=== PATIENT | male | born 1950 | race Caucasian/White ===

== ENCOUNTER 2020-11-04 17:07 | Inpatient (IN) | payer MEDICARE, MEDICAID ==
[~2020-11-04] VITALS: Ht 160 cm; Wt 69.9 kg
[2020-11-04] MEDS ORDERED: PIPERACILLIN/TAZ 3.375G PREMIX 50 ML IV ONE (22:45)
[2020-11-04 23:58] LABS: CHLORIDE 101 mEq/L (98-107)
[2020-11-05] VITALS (22 sets, daily range): BP systolic 124–163; BP diastolic 53–105
[2020-11-05 00:14] LABS: CLARITY URINE CLOUDY (CLEAR); COLOR URINE YELLOW (YELLOW); KETONES URINE NEGATIVE (NEGATIVE); LEUKOCYTE ESTERASE URINE 2+ (NEGATIVE); NITRITE URINE NEGATIVE (NEGATIVE); OCCULT BLOOD URINE TRACE (NEGATIVE); PROTEIN URINE 3+ (NEGATIVE); SPECIFIC GRAVITY URINE 1.015 (1.005-1.030); UROBILINOGEN URINE 0.2 E.U./dL (0.2-1.0)
[2020-11-05 00:15] LABS: BASOPHILS % 0.3 % (0.0-2.0); EOSINOPHILS % 0.9 % (0.0-5.0); HEMATOCRIT. 23.1 % (42.0-52.0); HEMOGLOBIN. 7.3 g/dL (14.0-18.0); LYMPHOCYTES % 7.9 % (20.0-50.0); MEAN CORPUSCULAR HEMOGLOBIN 25.6 pg (28.0-32.0); MEAN CORPUSCULAR VOLUME 81.4 fL (80.0-94.0); MEAN PLATELET VOLUME 7.2 fl (7.4-10.4); MONOCYTES % 8.1 % (2.0-8.0); NEUTROPHILS % 82.8 % (40.0-76.0); PLATELET 435 x1000/uL (130-400); RED BLOOD CELL COUNT 2.84 mill/uL (4.7-6.1); RED CELL DISTRIBUTION WIDTH 18.6 % (11.6-14.6)
[2020-11-05 05:37] LABS: BASOPHILS % 0.3 % (0.0-2.0); EOSINOPHILS % 1.2 % (0.0-5.0); HEMATOCRIT. 21.8 % (42.0-52.0); MEAN CORPUSCULAR HEMOGLOBIN 25.1 pg (28.0-32.0); MEAN CORPUSCULAR VOLUME 81.6 fL (80.0-94.0); MEAN PLATELET VOLUME 7.1 fl (7.4-10.4); MONOCYTES % 9.1 % (2.0-8.0); NEUTROPHILS % 80.4 % (40.0-76.0); PLATELET 354 x1000/uL (130-400); RED BLOOD CELL COUNT 2.67 mill/uL (4.7-6.1); RED CELL DISTRIBUTION WIDTH 18.6 % (11.6-14.6)
[2020-11-05 05:40] LABS: HEMOGLOBIN. 6.7 g/dL (14.0-18.0)
[2020-11-05] MEDS ORDERED: ACETAMINOPHEN 325MG TABLET PO PRN (08:30)
[2020-11-05] MEDS ORDERED: PIPERACILLIN/TAZOBACTAM 3.375 G in DEXT 5% WATER 100 ML IV SCH (08:30)
[2020-11-05] MEDS ORDERED: ONDANSETRON HCL 4MG/2ML INJ IV PRN (08:30)
[2020-11-05 08:45] LABS: INR 1.2; PARTIAL THROMBOPLASTIN TIME 32.1 sec (23.4-31.0); PROTHROMBIN TIME 12.9 sec (9.6-11.0)
[2020-11-05] MEDS ORDERED: PIPERACILLIN/TAZOBACTAM 2.25 G in DEXTROSE 5% WATER 50 ML IV SCH (09:00)
[2020-11-05] MEDS: METOPROLOL TARTRATE 50MG TABLET PO SCH ×2 (11:18→21:03)
[2020-11-05] MEDS: MORPHINE SULFATE 2 MG/ML CPJ (NOT FOR IM USE) IV PRN ×2 (11:18→23:20)
[2020-11-05] MEDS ORDERED: FENTANYL CITRATE/PF 50MCG/ML 2ML VIAL ONE (12:44)
[2020-11-05] MEDS ORDERED: LIDOCAINE HCL 1% 20ML VIAL (Pyxis) INJ ONE (12:44)
[2020-11-05] MEDS ORDERED: SODIUM BICARBONATE 4% (2.4MEQ) 5ML VIAL IV ONE (12:44)
[2020-11-05] MEDS ORDERED: CLONIDINE 0.1MG TABLET PO PRN (12:45)
[2020-11-05] MEDS ORDERED: FENTANYL CITRATE/PF 50MCG/ML 2ML VIAL IV SCH (14:00)
[2020-11-05 15:37] LABS: HEMATOCRIT 25.9 % (42.0-52.0); HEMOGLOBIN 8.4 g/dL (14.0-18.0)
[2020-11-05] MEDS: PIPERACILLIN/TAZOBACTAM 2.25 G in DEXTROSE 5% WATER 50 ML IV SCH (20:34)
[2020-11-05] MEDS ORDERED: ALPRAZOLAM 0.5 MG TABLET PO PRN (22:45)
[2020-11-05] MEDS ORDERED: ATOR-2 PO (22:53)
[2020-11-05] MEDS ORDERED: AMLO10TA80 PO (22:53)
[2020-11-05] MEDS ORDERED: FOLI-43 PO (22:53)
[2020-11-05] MEDS ORDERED: FERR325T6 PO (22:53)
[2020-11-05] MEDS ORDERED: CLON0.1T PO (22:53)
[2020-11-05] MEDS ORDERED: ALPR-340 PO (22:53)
[2020-11-05] MEDS ORDERED: MIRT15TA6 PO (22:53)
[2020-11-05] MEDS ORDERED: FURO40TA5 PO (22:53)
[2020-11-05] MEDS ORDERED: GLIP5TAB12 PO (22:53)
[2020-11-05] MEDS ORDERED: BENA20TA10 PO (22:53)
[2020-11-05] MEDS ORDERED: FLUO20CA39 PO (22:53)
[2020-11-05] MEDS ORDERED: METO-396 PO (22:54)
[2020-11-05] MEDS ORDERED: DEXTROSE 50% WATER 50ML SYRINGE IV PRN (23:00)
[2020-11-06] VITALS: BP 146/66
[2020-11-06 04:00] VITALS: BP 145/64
[2020-11-06] MEDS: PIPERACILLIN/TAZOBACTAM 2.25 G in DEXTROSE 5% WATER 50 ML IV SCH ×3 (04:24→20:42)
[2020-11-06] MEDS: BLOOD SUGAR DIAGNOSTIC STRIP TEST SCH ×4 (06:10→20:42)
[2020-11-06 06:21] LABS: HEMATOCRIT. 25.5 % (42.0-52.0); HEMOGLOBIN. 8.1 g/dL (14.0-18.0); MEAN CORPUSCULAR HEMOGLOBIN 25.7 pg (28.0-32.0); MEAN PLATELET VOLUME 7.1 fl (7.4-10.4); PLATELET 325 x1000/uL (130-400); RED BLOOD CELL COUNT 3.15 mill/uL (4.7-6.1); RED CELL DISTRIBUTION WIDTH 18.5 % (11.6-14.6)
[2020-11-06] MEDS: INSULIN LISPRO 100 UNITS/ML SUBCUT SCH ×4 (07:33→20:48)
[2020-11-06 07:51] VITALS: BP 147/65
[2020-11-06] MEDS: METOPROLOL TARTRATE 50MG TABLET PO SCH ×2 (08:33→20:42)
[2020-11-06] MEDS: AMLODIPINE 10MG TABLET PO SCH (08:33)
[2020-11-06] MEDS: FLUOXETINE HCL 20MG CAPSULE PO SCH (08:33)
[2020-11-06] MEDS: FUROSEMIDE 40MG TABLET PO SCH (08:33)
[2020-11-06] MEDS: FOLIC ACID/VITAMIN B COMP W-C TABLET PO SCH (08:33)
[2020-11-06 11:52] VITALS: BP 133/62
[2020-11-06 12:56] LABS: PLATELET ESTIMATE NORMAL
[2020-11-06 16:28] VITALS: BP 129/63
[2020-11-06 20:00] VITALS: BP 138/68
[2020-11-06] MEDS ORDERED: ATORVASTATIN CALCIUM 40MG TABLET PO SCH (21:00)
[2020-11-06] MEDS ORDERED: MIRTAZAPINE 15MG TABLET PO SCH (21:00)
[2020-11-06] MEDS: MORPHINE SULFATE 2 MG/ML CPJ (NOT FOR IM USE) IV PRN (21:45)
[2020-11-07] VITALS: BP 125/59
[2020-11-07 04:00] VITALS: BP 128/56
[2020-11-07] MEDS: PIPERACILLIN/TAZOBACTAM 2.25 G in DEXTROSE 5% WATER 50 ML IV SCH ×2 (04:22→12:57)
[2020-11-07] MEDS: BLOOD SUGAR DIAGNOSTIC STRIP TEST SCH ×2 (06:21→12:57)
[2020-11-07] MEDS: INSULIN LISPRO 100 UNITS/ML SUBCUT SCH ×2 (07:50→12:50)
[2020-11-07 08:00] VITALS: BP 129/63
[2020-11-07] MEDS: METOPROLOL TARTRATE 50MG TABLET PO SCH (09:00)
[2020-11-07] MEDS: AMLODIPINE 10MG TABLET PO SCH (09:00)
[2020-11-07] MEDS: FLUOXETINE HCL 20MG CAPSULE PO SCH (09:07)
[2020-11-07] MEDS: FUROSEMIDE 40MG TABLET PO SCH (09:07)
[2020-11-07] MEDS: FOLIC ACID/VITAMIN B COMP W-C TABLET PO SCH (09:08)
[2020-11-07 10:12] VITALS: BP 129/53
[2020-11-07 12:00] VITALS: BP 140/68
[2020-11-07] MEDS ORDERED: LEVO250T58 MT (12:34)
[2020-11-07 12:41] LABS: BASOPHILS % 0.5 % (0.0-2.0); EOSINOPHILS % 1.1 % (0.0-5.0); HEMATOCRIT. 25.3 % (42.0-52.0); HEMOGLOBIN. 8.1 g/dL (14.0-18.0); LYMPHOCYTES % 8.1 % (20.0-50.0); MEAN CORPUSCULAR HEMOGLOBIN 25.7 pg (28.0-32.0); MEAN CORPUSCULAR VOLUME 80.2 fL (80.0-94.0); MEAN PLATELET VOLUME 6.7 fl (7.4-10.4); MONOCYTES % 7.6 % (2.0-8.0); NEUTROPHILS % 82.7 % (40.0-76.0); PLATELET 289 x1000/uL (130-400); RED BLOOD CELL COUNT 3.15 mill/uL (4.7-6.1); RED CELL DISTRIBUTION WIDTH 18.1 % (11.6-14.6)
[2020-11-07 14:04] VITALS: BP 140/68
== END 2020-11-07 16:36 | disposition home or self-care (01) | DRG 856 ==
LOC: ER 17:07 → 6WST 11-05 00:42 → ENRESERV 11-05 15:36
PROVIDERS: ADMIT Internal Medicine; ATTEND Internal Medicine
PROC: 30233N1 Transfusion of Nonautologous Red Blood Cells into Peripheral Vein, Percutaneous Approach (ICD-10-PCS; principal; 2020-11-05)
PROC: 0W9F3ZX Drainage of Abdominal Wall, Percutaneous Approach, Diagnostic (ICD-10-PCS; 2020-11-05)
DX: T81.43XA Infection following a procedure, organ and space surgical site, initial encounter (principal); A41.9 Sepsis, unspecified organism; N18.6 End stage renal disease; L02.818 Cutaneous abscess of other sites; E44.0 Moderate protein-calorie malnutrition; E87.1 Hypo-osmolality and hyponatremia; I13.2 Hypertensive heart and chronic kidney disease with heart failure and with stage 5 chronic kidney disease, or end stage renal disease; J98.11 Atelectasis; N39.0 Urinary tract infection, site not specified; Z20.822 Contact with and (suspected) exposure to COVID-19; Y83.8 Other surgical procedures as the cause of abnormal reaction of the patient, or of later complication, without mention of misadventure at the time of the procedure; F41.9 Anxiety disorder, unspecified; E11.22 Type 2 diabetes mellitus with diabetic chronic kidney disease; E11.649 Type 2 diabetes mellitus with hypoglycemia without coma; D63.8 Anemia in other chronic diseases classified elsewhere; E78.5 Hyperlipidemia, unspecified; I25.10 Atherosclerotic heart disease of native coronary artery without angina pectoris; I50.9 Heart failure, unspecified; K80.20 Calculus of gallbladder without cholecystitis without obstruction; Z87.442 Personal history of urinary calculi; Z90.49 Acquired absence of other specified parts of digestive tract; Z99.2 Dependence on renal dialysis; Y92.89 Other specified places as the place of occurrence of the external cause; Z68.27 Body mass index [BMI] 27.0-27.9, adult
CPT/HCPCS: 36415; 49180; 71045; 74176; 77012; 80048; 80076; 81003; 82270; 82962; 83036; 83605; 84145; 84484; 85014; 85018; 85025; 86850; 86900; 86920; 87070; 87075; 87077; 87186; 87426; 93005; 99152; 99153; 99285; C1729; C1769; J2270; J2405; J2543; J3010; J3490; J7040; J7060; L8514; P9016; G0500

== ENCOUNTER 2021-02-11 07:00 | Inpatient (IN) | payer MEDICARE, MEDICAID ==
[~2021-02-11] VITALS: Ht 167.6 cm; Wt 75.3 kg
[2021-02-11] VITALS (31 sets, daily range): BP systolic 131–158; BP diastolic 56–85
[~2021-02-11 07:00] MED LIST: ALPR-340 PO; AMLO10TA80 PO; ATOR-2 PO; BENA20TA10 PO; CLON0.1T PO; FERR325T6 PO; FLUO20CA39 PO; FOLI-43 PO; FURO40TA5 PO; GLIP5TAB12 PO; LEVO250T58 MT; METO-396 PO; MIRT15TA6 PO
[2021-02-11 08:33] LABS: BASOPHILS % 0.5 % (0.0-2.0); EOSINOPHILS % 1.8 % (0.0-5.0); HEMATOCRIT. 38.7 % (42.0-52.0); HEMOGLOBIN. 12.3 g/dL (14.0-18.0); LYMPHOCYTES % 14.8 % (20.0-50.0); MEAN CORPUSCULAR HEMOGLOBIN 26.9 pg (28.0-32.0); MEAN CORPUSCULAR VOLUME 84.2 fL (80.0-94.0); MEAN PLATELET VOLUME 9.7 fl (7.4-10.4); MONOCYTES % 7.2 % (2.0-8.0); NEUTROPHILS % 75.7 % (40.0-76.0); PLATELET 129 x1000/uL (130-400); RED BLOOD CELL COUNT 4.59 mill/uL (4.7-6.1); RED CELL DISTRIBUTION WIDTH 16.6 % (11.6-14.6)
[2021-02-11 08:36] LABS: CHLORIDE 103 mEq/L (98-107)
[2021-02-11 08:59] LABS: PROTHROMBIN TIME 10.3 sec (9.6-11.0)
[2021-02-11] MEDS ORDERED: CEFAZOLIN 1000MG PREMIX 50 ML IV NR (09:45)
[2021-02-11] MEDS ORDERED: LIDOCAINE HCL 1% 20ML VIAL (Pyxis) INJ ONE (10:15)
[2021-02-11] MEDS ORDERED: IOHEXOL-300 100 ML BOTTLE ONE (10:15)
[2021-02-11] MEDS ORDERED: HEPARIN 1000 UNITS/ML 10ML ONE (10:16)
[2021-02-11] MEDS ORDERED: FENTANYL CITRATE/PF 50MCG/ML 2ML VIAL ONE ×2 (10:19→11:52)
[2021-02-11] MEDS ORDERED: CEFAZOLIN 1000MG PREMIX 50 ML IV ONE (10:19)
[2021-02-11] MEDS ORDERED: FENTANYL CITRATE/PF 50MCG/ML 2ML VIAL IV ONE ×2 (11:45→12:00)
[2021-02-11] MEDS: ACETAMINOPHEN 325MG TABLET PO PRN (19:24)
[2021-02-11] MEDS ORDERED: HYDR100T26 MT (22:05)
[2021-02-11] MEDS ORDERED: ASPI-1497 MT (22:05)
[2021-02-11] MEDS: ONDANSETRON HCL 4MG/2ML INJ IV PRN (22:51)
[2021-02-12] VITALS (29 sets, daily range): BP systolic 132–160; BP diastolic 62–84
[2021-02-12 10:07] LABS: HEMATOCRIT 39.7 % (42.0-52.0); HEMOGLOBIN 12.6 g/dL (14.0-18.0); MEAN CORPUSCULAR HEMOGLOBIN 26.9 pg (28.0-32.0); MEAN CORPUSCULAR VOLUME 84.7 fL (80.0-94.0); PLATELET 123 x1000/uL (130-400); RED BLOOD CELL COUNT 4.69 mill/uL (4.7-6.1); RED CELL DISTRIBUTION WIDTH 16.5 % (11.6-14.6)
[2021-02-12 10:23] LABS: PARTIAL THROMBOPLASTIN TIME 28.3 sec (23.4-31.0); PROTHROMBIN TIME 10.7 sec (9.6-11.0)
[2021-02-12] MEDS ORDERED: LIDOCAINE HCL 1% 20ML VIAL (Pyxis) INJ ONE (12:59)
[2021-02-12] MEDS ORDERED: CEFAZOLIN 1000MG PREMIX 50 ML IV ONE ×2 (13:13→13:15)
[2021-02-12] MEDS ORDERED: FENTANYL CITRATE/PF 50MCG/ML 2ML VIAL ONE (13:14)
[2021-02-12] MEDS ORDERED: FENTANYL CITRATE/PF 50MCG/ML 2ML VIAL IV ONE (13:45)
[2021-02-12] MEDS ORDERED: HEPARIN 100 UNITS/1 ML VIAL IVF PRN (13:45)
[2021-02-12] MEDS: ACETAMINOPHEN 325MG TABLET PO PRN (16:25)
[2021-02-12 17:26] LABS: HEPATITIS B SURFACE ANTIGEN NEGATIVE
[2021-02-12 17:53] LABS: HEPATITIS A AB IGM NEGATIVE (NEGATIVE)
[2021-02-12] MEDS ORDERED: NALOXONE HCL 0.4MG/ML VIAL IV PRN (19:00)
[2021-02-12] MEDS ORDERED: HYDROCODONE/ACETAMINOPHEN 5/325MG TABLET PO PRN (19:00)
[2021-02-12] MEDS: MORPHINE SULFATE 2 MG/ML CPJ (NOT FOR IM USE) IV PRN (19:34)
[2021-02-13] VITALS (12 sets, daily range): BP systolic 99–146; BP diastolic 52–93
[2021-02-13] MEDS: MORPHINE SULFATE 2 MG/ML CPJ (NOT FOR IM USE) IV PRN (01:49)
[2021-02-13] MEDS ORDERED: LORAZEPAM 2MG/ML CPJ IM PRN (03:45)
[2021-02-13] MEDS ORDERED: SORBITOL 70% SOLN 30ML PO SCH (11:00)
[2021-02-13] MEDS ORDERED: BISACODYL 10MG SUPP PR SCH (11:00)
[2021-02-13 12:38] LABS: BASOPHILS % 0.5 % (0.0-2.0); EOSINOPHILS % 0.7 % (0.0-5.0); HEMATOCRIT. 39.7 % (42.0-52.0); LYMPHOCYTES % 8.8 % (20.0-50.0); MEAN CORPUSCULAR HEMOGLOBIN 26.7 pg (28.0-32.0); MEAN CORPUSCULAR VOLUME 81.9 fL (80.0-94.0); MEAN PLATELET VOLUME 8.9 fl (7.4-10.4); MONOCYTES % 8.1 % (2.0-8.0); NEUTROPHILS % 81.9 % (40.0-76.0); PLATELET 133 x1000/uL (130-400); RED BLOOD CELL COUNT 4.84 mill/uL (4.7-6.1); RED CELL DISTRIBUTION WIDTH 16.2 % (11.6-14.6)
[2021-02-13] MEDS: ONDANSETRON HCL 4MG/2ML INJ IV PRN (23:10)
[2021-02-14] VITALS: BP 119/73
[2021-02-14 02:00] VITALS: BP 113/73
[2021-02-14 04:00] VITALS: BP 118/69
[2021-02-14 06:00] VITALS: BP 122/70
[2021-02-14] MEDS: ONDANSETRON HCL 4MG/2ML INJ IV PRN (06:23)
[2021-02-14] MEDS ORDERED: DIATR MEGLU/DIATRIZOATE SOLN 30ML PO SCH (08:15)
[2021-02-14 08:20] VITALS: BP 152/95
[2021-02-14] MEDS ORDERED: IOHEXOL-300 100 ML BOTTLE ONE (09:20)
[2021-02-14 10:22] VITALS: BP 112/64
== END 2021-02-14 11:50 | disposition home or self-care (01) | DRG 252 ==
LOC: ER 07:00 → MICUSO 11:04 → 3WST 19:22
PROVIDERS: ADMIT Internal Medicine Nephrology; ATTEND Internal Medicine Nephrology
PROC: 05CF3ZZ Extirpation of Matter from Left Cephalic Vein, Percutaneous Approach (ICD-10-PCS; 2021-02-11)
PROC: 037Y3ZZ Dilation of Upper Artery, Percutaneous Approach (ICD-10-PCS; 2021-02-11)
PROC: 057Y3ZZ Dilation of Upper Vein, Percutaneous Approach (ICD-10-PCS; 2021-02-11)
PROC: B31J1ZZ Fluoroscopy of Left Upper Extremity Arteries using Low Osmolar Contrast (ICD-10-PCS; 2021-02-11)
PROC: B51N1ZZ Fluoroscopy of Left Upper Extremity Veins using Low Osmolar Contrast (ICD-10-PCS; 2021-02-11)
PROC: B31N1ZZ Fluoroscopy of Other Upper Arteries using Low Osmolar Contrast (ICD-10-PCS; 2021-02-11)
PROC: B51V1ZZ Fluoroscopy of Other Veins using Low Osmolar Contrast (ICD-10-PCS; 2021-02-11)
PROC: B5181ZZ Fluoroscopy of Superior Vena Cava using Low Osmolar Contrast (ICD-10-PCS; 2021-02-11)
PROC: 0JH63XZ Insertion of Tunneled Vascular Access Device into Chest Subcutaneous Tissue and Fascia, Percutaneous Approach (ICD-10-PCS; principal; 2021-02-12)
PROC: 02HV33Z Insertion of Infusion Device into Superior Vena Cava, Percutaneous Approach (ICD-10-PCS; 2021-02-12)
PROC: B5181ZA Fluoroscopy of Superior Vena Cava using Low Osmolar Contrast, Guidance (ICD-10-PCS; 2021-02-12)
PROC: B548ZZA Ultrasonography of Superior Vena Cava, Guidance (ICD-10-PCS; 2021-02-12)
DX: T82.510A Breakdown (mechanical) of surgically created arteriovenous fistula, initial encounter (principal); N18.6 End stage renal disease; I13.2 Hypertensive heart and chronic kidney disease with heart failure and with stage 5 chronic kidney disease, or end stage renal disease; F41.9 Anxiety disorder, unspecified; Y84.1 Kidney dialysis as the cause of abnormal reaction of the patient, or of later complication, without mention of misadventure at the time of the procedure; Y71.2 Prosthetic and other implants, materials and accessory cardiovascular devices associated with adverse incidents; Z20.822 Contact with and (suspected) exposure to COVID-19; E87.5 Hyperkalemia; I50.9 Heart failure, unspecified; D64.9 Anemia, unspecified; E11.22 Type 2 diabetes mellitus with diabetic chronic kidney disease; Z99.2 Dependence on renal dialysis; Z87.442 Personal history of urinary calculi; Y92.89 Other specified places as the place of occurrence of the external cause; Z91.15 Patient's noncompliance with renal dialysis
CPT/HCPCS: 36415; 36558; 36905; 71045; 74177; 76937; 77001; 80048; 80053; 82962; 85025; 85027; 86705; 86709; 86803; 87340; 87426; 99152; 99153; 99285; C1725; C1750; C1757; C1766; C1769; C1887; J0690; J1642; J1644; J2060; J2270; J2405; J3010; J3490; Q9967; G0500

== ENCOUNTER 2022-11-12 07:15 | Emergency (ER) | payer MEDICARE, MEDICAID ==
[~2022-11-12] VITALS: Ht 170.2 cm; Wt 77.2 kg
[~2022-11-12 07:15] MED LIST changes: +ASPI-1497 MT; +BENA-8 PO; -BENA20TA10 PO; +HYDR100T26 MT; -LEVO250T58 MT; +LEVO250T74 MT; +MIRT-89 PO; -MIRT15TA6 PO
[2022-11-12] MEDS ORDERED: ONDANSETRON HCL 4MG TABLET PO ONE (09:00)
[2022-11-12] MEDS ORDERED: KETOROLAC 60MG/2ML VIAL IM ONE (09:00)
[2022-11-12] MEDS ORDERED: TOPUD PO (09:47)
[2022-11-12 10:04] VITALS: BP 131/54
== END 2022-11-12 10:05 | disposition home or self-care (01) ==
LOC: ER 07:15
DX: R51.9 Headache, unspecified (principal); E11.9 Type 2 diabetes mellitus without complications; I11.0 Hypertensive heart disease with heart failure; I50.9 Heart failure, unspecified; Z79.899 Other long term (current) drug therapy
CPT/HCPCS: 96372; 99283; J1885; Q0162

== ENCOUNTER 2023-01-13 20:55 | Inpatient (IN) | payer MEDICARE, MEDICAID ==
[~2023-01-13] VITALS: Ht 170.2 cm; Wt 86.3 kg
[~2023-01-13 20:55] MED LIST changes: +TOPUD PO
[2023-01-13 21:30] VITALS: PULSE 51; RESP 17
[2023-01-13] MEDS ORDERED: SODIUM BICARBONATE 150 MEQ in DEXTROSE 5% WATER 1,000 ML IV STA (21:49)
[2023-01-13] MEDS ORDERED: VECURONIUM BROMIDE 10 MG/VIAL IV ONE (22:00)
[2023-01-13] MEDS ORDERED: DEXTROSE 50% WATER 50ML SYRINGE IV ONE (22:00)
[2023-01-13] MEDS ORDERED: CALCIUM CHLORIDE 1GM/10ML SYR IV ONE (22:00)
[2023-01-13] MEDS ORDERED: SODIUM BICARBONATE 8.4% 1 MEQ/ML 50ML SYR IV ONE ×2 (22:00)
[2023-01-13] MEDS ORDERED: ALBUTEROL (0.083%) 2.5MG/3ML NEB HHN ONE (22:00)
[2023-01-13] MEDS ORDERED: INSULIN REGULAR (HUMULIN R) 300UNITS/3ML VIAL IV ONE (22:00)
[2023-01-13] MEDS ORDERED: DOPAMINE 400MG/250ML PREMIX 250 ML IV STA (22:38)
[2023-01-13 22:51] LABS: BG BASE EXCESS -3.9 mmol/L (-2.0-2.0); BG DEOXYHEMOGLOBIN 1.4 % (0.0-5.0); BG FRACTION INSPIRED OXYGEN 1000; BG HCO3 ACT 21.7 mmol/L (22.0-26.0); BG METHEMOGLOBIN 0.2 % (0.0-1.5); BG OXYGEN SATURATION 98.6 % (92.0-98.5); BG OXYHEMOGLOBIN 97.4 % (94.0-97.0); BG PCO2 41.9 mmHg (35.0-45.0); BG PH 7.332 (7.350-7.450); BG PO2 338.5 mmHg (75.0-100.0); BG SAMPLE SITE RIGHT RADIAL; BG VENT MODE VENT - AC
[2023-01-13] MEDS ORDERED: IPRATROPIUM/ALBUTEROL 0.5-3(2.5)MG/3ML NEB HHN PRN (23:00)
[2023-01-13] MEDS ORDERED: MIDAZOLAM HCL 100 MG in SODIUM CHLORIDE 0.9% 80 ML IV PRN ×2 (23:00→23:15)
[2023-01-13] MEDS ORDERED: FENTANYL CITRATE/PF 2,500 MCG in SODIUM CHLORIDE 0.9% 200 ML IV PRN ×2 (23:00→23:15)
[2023-01-13 23:16] LABS: MEAN CORPUSCULAR HEMOGLOBIN 26.4 pg (28.0-32.0); MEAN CORPUSCULAR VOLUME 85.8 fL (80.0-94.0); MEAN PLATELET VOLUME 8.5 fl (7.4-10.4); PLATELET 283 x1000/uL (130-400); RED BLOOD CELL COUNT 2.44 mill/uL (4.7-6.1); RED CELL DISTRIBUTION WIDTH 19.9 % (11.6-14.6)
[2023-01-13 23:18] LABS: CHLORIDE 99 mEq/L (98-107)
[2023-01-13 23:24] LABS: HEMOGLOBIN. 6.5 g/dL (14.0-18.0)
[2023-01-13 23:32] LABS: INR 1.1; PROTHROMBIN TIME 12.1 sec (9.6-11.0)
[2023-01-13 23:33] VITALS: O2SAT 97
[2023-01-13 23:55] VITALS: PULSE 73; RESP 15
[2023-01-14] VITALS (42 sets, daily range): BP systolic 84–104; BP diastolic 38–92; PULSE 69–89; RESP 12–28; TEMP 94.8–99
[2023-01-14] MEDS: IPRATROPIUM/ALBUTEROL 0.5-3(2.5)MG/3ML NEB HHN SCH ×5 (00:16→20:15)
[2023-01-14] MEDS ORDERED: SODIUM BICARBONATE 8.4% 1 MEQ/ML 50ML SYR IV NR ×2 (00:30)
[2023-01-14] MEDS ORDERED: CALCIUM CHLORIDE 1GM/10ML SYR IV NR (00:30)
[2023-01-14 00:34] LABS: PLATELET ESTIMATE NORMAL
[2023-01-14] MEDS: ALBUTEROL (0.083%) 2.5MG/3ML NEB HHN SCH ×2 (00:50→02:01)
[2023-01-14 06:54] LABS: CLARITY URINE CLOUDY (CLEAR); COLOR URINE YELLOW (YELLOW); KETONES URINE NEGATIVE (NEGATIVE); LEUKOCYTE ESTERASE URINE 3+ (NEGATIVE); NITRITE URINE NEGATIVE (NEGATIVE); OCCULT BLOOD URINE 3+ (NEGATIVE); PH URINE 6.5 (4.5-8.0); PROTEIN URINE 3+ (NEGATIVE); SPECIFIC GRAVITY URINE 1.016 (1.005-1.030); UROBILINOGEN URINE 0.2 E.U./dL (0.2-1.0)
[2023-01-14] MEDS ORDERED: PIPERACILLIN/TAZ 3.375G PREMIX 50 ML IV NR (08:30)
[2023-01-14 08:38] LABS: BG CARBOXYHEMOGLOBIN 1.2 % (0.5-1.5); BG DEOXYHEMOGLOBIN 4.4 % (0.0-5.0); BG FRACTION INSPIRED OXYGEN 40; BG HCO3 ACT 29.7 mmol/L (22.0-26.0); BG METHEMOGLOBIN 0.3 % (0.0-1.5); BG OXYGEN SATURATION 95.5 % (92.0-98.5); BG OXYHEMOGLOBIN 94.1 % (94.0-97.0); BG PCO2 53.2 mmHg (35.0-45.0); BG PH 7.364 (7.350-7.450); BG PO2 101.5 mmHg (75.0-100.0); BG SAMPLE SITE RIGHT RADIAL; BG TOTAL HEMOGLOBIN 5.1 g/dL (12.0-18.0); BG VENT MODE VENT - AC
[2023-01-14] MEDS ORDERED: PANTOPRAZOLE SODIUM 40 MG/VIAL IV SCH ×2 (09:00→21:00)
[2023-01-14] MEDS ORDERED: VANCOMYCIN 1.5GM/250ML IVPB 250 ML IV SCH (09:00)
[2023-01-14 09:28] LABS: CHLORIDE 105 mEq/L (98-107)
[2023-01-14 09:30] LABS: MEAN CORPUSCULAR HEMOGLOBIN 26.9 pg (28.0-32.0); MEAN CORPUSCULAR VOLUME 83.8 fL (80.0-94.0); MEAN PLATELET VOLUME 7.9 fl (7.4-10.4); PLATELET 222 x1000/uL (130-400); RED BLOOD CELL COUNT 2.06 mill/uL (4.7-6.1); RED CELL DISTRIBUTION WIDTH 19.5 % (11.6-14.6)
[2023-01-14 09:47] LABS: HEMATOCRIT. 17.3 % (42.0-52.0); HEMOGLOBIN. 5.6 g/dL (14.0-18.0)
[2023-01-14] MEDS ORDERED: DOPAMINE 400MG/250ML PREMIX 250 ML IV PRN (10:00)
[2023-01-14] MEDS ORDERED: ACETAMINOPHEN 325MG TABLET PO PRN ×2 (10:30)
[2023-01-14] MEDS ORDERED: CLONIDINE 0.1MG TABLET PO PRN (10:30)
[2023-01-14] MEDS ORDERED: HYDROCODONE/ACETAMINOPHEN 5/325MG TABLET PO PRN (10:30)
[2023-01-14] MEDS ORDERED: ONDANSETRON HCL 4MG/2ML INJ IV PRN (10:30)
[2023-01-14] MEDS ORDERED: DOCUSATE SODIUM 100MG CAPSULE PO PRN (10:30)
[2023-01-14] MEDS ORDERED: GUAIFENESIN 200MG/10ML SUGAR FREE UDC PO PRN (10:30)
[2023-01-14] MEDS ORDERED: MAGNESIUM/ALUMINUM HYDROXIDE/SIMETHICONE 30ML UDC PO PRN (10:30)
[2023-01-14] MEDS ORDERED: IPRATROPIUM/ALBUTEROL 0.5-3(2.5)MG/3ML NEB HHN PRN (10:30)
[2023-01-14] MEDS ORDERED: NALOXONE HCL 0.4MG/ML VIAL IV PRN (10:45)
[2023-01-14] MEDS ORDERED: NOREPINEPHRINE 8MG/250ML PMX 250 ML IV PRN (11:15)
[2023-01-14] MEDS ORDERED: FENTANYL CITRATE/PF 2,500 MCG in SODIUM CHLORIDE 0.9% 200 ML IV PRN (11:30)
[2023-01-14] MEDS: KCL 20MEQ/100ML PREMIX 100 ML IV SCH ×2 (12:00→14:00)
[2023-01-14 12:10] LABS: PLATELET ESTIMATE NORMAL
[2023-01-14 12:37] LABS: HEPATITIS B SURFACE ANTIGEN NEGATIVE
[2023-01-14] MEDS ORDERED: DEXTROSE 50% WATER 50ML SYRINGE IV PRN (13:30)
[2023-01-14] MEDS: INSULIN LISPRO 100 UNITS/ML SUBCUT SCH ×3 (14:00→21:00)
[2023-01-14] MEDS: BLOOD SUGAR DIAGNOSTIC STRIP TEST SCH ×3 (14:40→21:42)
[2023-01-14] MEDS ORDERED: PIPERACILLIN/TAZOBACTAM 3.375 G in DEXTROSE 5% WATER 50 ML IV SCH (20:00)
[2023-01-15] VITALS (31 sets, daily range): BP systolic 79–135; BP diastolic 23–83; PULSE 20–61; RESP 14–24; TEMP 99–99.8
[2023-01-15 00:14] LABS: HEMATOCRIT 20.9 % (42.0-52.0); HEMOGLOBIN 6.5 g/dL (14.0-18.0)
[2023-01-15 00:19] LABS: CHLORIDE 100 mEq/L (98-107)
[2023-01-15 00:35] LABS: PHOSPHORUS 6.2 mg/dL (2.5-4.9); T4 FREE 0.87 ng/dL (0.76-1.46)
[2023-01-15] MEDS ORDERED: ATROPINE SULFATE 1MG/10ML SYR IV NR ×2 (01:15→01:45)
[2023-01-15] MEDS ORDERED: DOPAMINE 800MG PREMIX (DOUBLE) 250 ML IV PRN (01:15)
[2023-01-15] MEDS: NOREPINEPHRINE 8 MG in DEXTROSE 5% WATER 250 ML IV PRN ×2 (01:26→04:30)
[2023-01-15 01:27] LABS: BG BASE EXCESS -3.9 mmol/L (-2.0-2.0); BG CARBOXYHEMOGLOBIN 1.9 % (0.5-1.5); BG DEOXYHEMOGLOBIN 7.7 % (0.0-5.0); BG FRACTION INSPIRED OXYGEN 50; BG HCO3 ACT 22.3 mmol/L (22.0-26.0); BG METHEMOGLOBIN 0.2 % (0.0-1.5); BG OXYGEN SATURATION 92.1 % (92.0-98.5); BG OXYHEMOGLOBIN 90.2 % (94.0-97.0); BG PCO2 46.6 mmHg (35.0-45.0); BG PH 7.298 (7.350-7.450); BG PO2 74.9 mmHg (75.0-100.0); BG SAMPLE SITE RIGHT BRACHIAL; BG TOTAL HEMOGLOBIN 7.7 g/dL (12.0-18.0); BG VENT MODE VENT - AC
[2023-01-15] MEDS: IPRATROPIUM/ALBUTEROL 0.5-3(2.5)MG/3ML NEB HHN SCH (01:37)
== END 2023-01-15 09:54 | DRG 871 ==
LOC: ER 20:55 → MICUSO 01-14 00:19
PROVIDERS: ADMIT Hospitalist; ATTEND Hospitalist
PROC: 5A1935Z Respiratory Ventilation, Less than 24 Consecutive Hours (ICD-10-PCS; principal; 2023-01-14)
PROC: 0BH17EZ Insertion of Endotracheal Airway into Trachea, Via Natural or Artificial Opening (ICD-10-PCS; 2023-01-14)
PROC: 06HY33Z Insertion of Infusion Device into Lower Vein, Percutaneous Approach (ICD-10-PCS; 2023-01-14)
PROC: 0BH17EZ Insertion of Endotracheal Airway into Trachea, Via Natural or Artificial Opening (ICD-10-PCS; 2023-01-14)
PROC: 5A1935Z Respiratory Ventilation, Less than 24 Consecutive Hours (ICD-10-PCS; 2023-01-14)
PROC: 30233N1 Transfusion of Nonautologous Red Blood Cells into Peripheral Vein, Percutaneous Approach (ICD-10-PCS; 2023-01-14)
PROC: 5A1D70Z Performance of Urinary Filtration, Intermittent, Less than 6 Hours Per Day (ICD-10-PCS; 2023-01-14)
PROC: 5A12012 Performance of Cardiac Output, Single, Manual (ICD-10-PCS; 2023-01-14)
PROC: 06HY33Z Insertion of Infusion Device into Lower Vein, Percutaneous Approach (ICD-10-PCS; 2023-01-14)
PROC: B54BZZA Ultrasonography of Right Lower Extremity Veins, Guidance (ICD-10-PCS; 2023-01-14)
DX: A41.9 Sepsis, unspecified organism (principal); E43 Unspecified severe protein-calorie malnutrition; G93.41 Metabolic encephalopathy; I50.33 Acute on chronic diastolic (congestive) heart failure; J96.01 Acute respiratory failure with hypoxia; R65.21 Severe sepsis with septic shock; N18.6 End stage renal disease; I21.A1 Myocardial infarction type 2; I13.2 Hypertensive heart and chronic kidney disease with heart failure and with stage 5 chronic kidney disease, or end stage renal disease; I44.2 Atrioventricular block, complete; E87.29 Other acidosis; E87.1 Hypo-osmolality and hyponatremia; K92.2 Gastrointestinal hemorrhage, unspecified; N39.0 Urinary tract infection, site not specified; F17.200 Nicotine dependence, unspecified, uncomplicated; E87.5 Hyperkalemia; F41.9 Anxiety disorder, unspecified; E78.5 Hyperlipidemia, unspecified; D63.1 Anemia in chronic kidney disease; E87.6 Hypokalemia; I71.9 Aortic aneurysm of unspecified site, without rupture; M54.9 Dorsalgia, unspecified; I95.9 Hypotension, unspecified; Z66 Do not resuscitate; I46.9 Cardiac arrest, cause unspecified; E11.22 Type 2 diabetes mellitus with diabetic chronic kidney disease; Z99.2 Dependence on renal dialysis; Z79.82 Long term (current) use of aspirin; Z79.899 Other long term (current) drug therapy; Z87.442 Personal history of urinary calculi; Z79.84 Long term (current) use of oral hypoglycemic drugs; Z90.49 Acquired absence of other specified parts of digestive tract; Z85.038 Personal history of other malignant neoplasm of large intestine; Z68.29 Body mass index [BMI] 29.0-29.9, adult
CPT/HCPCS: 36415; 36600; 71045; 80053; 81003; 82375; 82805; 82962; 83036; 83605; 83735; 83880; 84100; 84132; 84145; 84439; 84443; 84484; 85014; 85018; 85025; 86705; 86709; 86803; 86850; 86900; 86920; 87340; 90935; 93005; 93970; 94002; 94003; 94640; 94644; 99291; C9113; J0461; J1265; J1815; J2250; J2543; J3010; J3370; J3480; J3490; J7050; J7060; J7070; P9016